=== PATIENT | female | born 1965 | race Caucasian/White ===

== ENCOUNTER 2017-09-25 13:41 | Emergency (ER) | payer OTHER ==
[2017-09-25] MEDS: HYDROCODONE/APAP (5/325) TAB PO (14:43)
== END 2017-09-25 15:50 | disposition home or self-care (01) ==
LOC: FTE 13:41
DX: M25.512 Pain in left shoulder (principal); I10 Essential (primary) hypertension; E11.9 Type 2 diabetes mellitus without complications; Z79.4 Long term (current) use of insulin; Z79.82 Long term (current) use of aspirin; Z79.84 Long term (current) use of oral hypoglycemic drugs; Z87.891 Personal history of nicotine dependence
CPT/HCPCS: 73000; 73030; 93005; 99284-25